=== PATIENT | male | born 1960 | race Caucasian/White ===

== ENCOUNTER 2024-06-09 11:48 | Emergency (ER) | payer BC, OTHER ==
[~2024-06-09] VITALS: Ht 180.3 cm; Wt 75.0 kg
--- NOTE | 2024-06-09 11:53 | ED.PDOC ---
HPI Comments 64-year-old male with PMHx Arthritis brought in by EMS presents with a chief complaint of palpitations and anxiety. Patient states that he is feeling palpitations to his left chest wall, no active pain at this time, describes as pressure sensation. Patient mentions that he felt palpitations and drove to [facility] to check his BP and patient states that after checking it 3 times the machine told him "seek medical attention" and he drove to the nearest fire station. Patient was hypertensive on arrival at 176/99, no history of HTN. Patient is anxious about his symptoms. No other symptoms or modifying factors present at this time. Time Seen by MD: 11:43 Reviewed Notes: Medications, Allergies Allergies: Coded Allergies: NO KNOWN ALLERGIES (Unverified , 06/09/24) Information Source: Patient, Emergency Med Personnel Mode of Arrival: EMS Severity: Moderate Timing: Minutes Duration: Since onset Prehospital treatment: None Location: Chest (L) Radiation: No Radiation Quality: Pressure Onset: At Rest Cardiac Risk Factors: None PE Risk Factors: None History of: None Past Medical History PAST MEDICAL HISTORY: Denies Surgical History: Denies all surgeries Family History Family History: Reviewed,noncontributory to illness Social History Smoker: Non-Smoker Alcohol: Rarely Drugs: Denies Drug Use Lives In: Home Constitutional: denies: chills, diaphoresis, fatigue, fever, malaise, sweats, weakness, others EENTM: denies: blurred vision, double vision, ear bleeding, ear discharge, ear drainage, ear pain, ear ringing, eye pain, eye redness, hearing loss, mouth pain, mouth swelling, nasal discharge, nose bleeding, nose congestion, nose pain, photophobia, tearing, throat pain, throat swelling, voice changes, others Respiratory: denies: cough, hemoptysis, orthopnea, SOB at rest, shortness of breath, SOB with excertion, stridor, wheezing, others Cardiovascular: reports: palpitations; denies: chest pain, dizzy spells, diaphoresis, Dyspnea on exertion, edema, irregular heart beat, left arm pain, lightheadedness, PND, syncope, others Gastrointestinal: denies: abdomen distended, abdominal pain, blood streaked bowels, constipated, diarrhea, dysphagia, difficulty swallowing, hematemesis, melena, nausea, poor appetite, poor fluid intake, rectal bleeding, rectal pain, vomiting, others Genitourinary: denies: burning, dysuria, flank pain, frequency, hematuria, incontinence, penile discharge, penile sore, pain, testicle pain, testicle swelling, urgency, others Neurological: denies: dizziness, fainting, headache, left sided numbness, left sided weakness, numbness, paresthesia, pre-existing deficit, right sided numbness, right sided weakness, seizure, speech problems, tingling, tremors, weakness, others Musculoskeletal: denies: back pain, gout, joint pain, joint swelling, muscle pain, muscle stiffness, neck pain, others Integumetry: denies: bruises, change in color, change in hair/nails, dryness, laceration, lesions, lumps, rash, wounds, others Allergic/Immunocompromised: denies: Difficulty Healing, Frequent Infections, Hives, Itching, others Hematologic/Lymphatic: denies: anemia, blood clots, easy bleeding, easy bruising, swollen glands, others Endocrine: denies: excessive hunger, excessive sweating, excessive thirst, excessive urination, flushing, intolerance to cold, intolerance to heat, unexplained weight gain, unexplained weight loss, others Psychiatric: reports: anxiety; denies: bipolar disorder, depression, hopeless, panic disorder, schizophrenia, sleepless, suicidal, others All Other Systems: Reviewed and Negative Physical Exam General Appearance: Moderate Distress, Normal HEENT: Normal ENT Inspection, Pharynx Normal, TMs Normal Neck: Full Range of Motion, Non-Tender, Normal, Normal Inspection Respiratory: Chest Non-Tender, Lungs Clear, No Accessory Muscle Use, No Respiratory Distress, Normal Breath Sounds Cardiovascular: No Edema, No JVD, No Murmur, No Gallop, Normal Peripheral Pulses, Tachycardia Breast Exam: Deferred Gastrointestinal: No Organomegaly, Non Tender, No Pulsatile Mass, Normal Bowel Sounds, Soft Genitalia: Deferred Pelvic: Deferred Rectal: Deferred Extremities: No calf tenderness, Normal capillary refill, Normal inspection, No rmal range of motion, Non-tender, No pedal edema Musculoskeletal : Apperance: Normal Neurologic: Alert, mica spreader II-XII nml as Tested, No Motor Deficits, Normal Affect, Normal Mood, No Sensory Deficits Cerebellar Function: Normal Reflexes: Normal Skin: Dry, Normal Color, Warm Peripheral Pulses: 3+ Radial (R), 3+ Radial (L) Lymphatic: No Adenopathy Was a procedure done? Was a procedure done?: No CP Differential Dx Differential Diagnosis: A-fib, A-Flutter, Angina, Anxiety / Panic Attack, Atrial Dysrhythmia, Electrolyte Disorder X-Ray, Labs, Meds, VS Vital Signs Date Time Temp Pulse Resp B/P (MAP) Pulse Ox O2 Delivery O2 Flow Rate FiO2 06/09/24 13:50 98.0 100 17 153/99 (117) 96 98.0 06/09/24 12:59 98.1 114 18 166/110 (128) 97 98.1 06/09/24 12:59 114 18 97 Room Air 06/09/24 12:00 97.7 118 18 160/94 (116) 97 06/09/24 11:53 124 Lab Test 06/09/24 13:11 06/09/24 12:03 Range/Units White Blood Count 10.5 4.4-10.8 10^3/uL Red Blood Count 5.57 4.5-5.90 10^6/uL Hemoglobin 16.9 13.5-17.5 g/dL Hematocrit 50.0 41.0-53.0 % Mean Corpuscular Volume 89.6 80.0-100.0 fL Mean Corpuscular Hemoglobin 30.2 28.0-32.0 pg Mean Corpuscular Hemoglobin Concent 33.8 32.0-36.0 g/dL Red Cell Distribution Width 14.1 11.8-14.3 % Platelet Count 251 140-450 10^3/uL Mean Platelet Volume 8.5 6.9-10.8 fL Neutrophils (%) (Auto) 81.9 H 37.0-80.0 % Lymphocytes (%) (Auto) 11.5 10.0-50.0 % Monocytes (%) (Auto) 6.1 0.0-12.0 % Eosinophils (%) (Auto) 0.2 0.0-7.0 % Basophils (%) (Auto) 0.3 0.0-2.0 % Neutrophils # (Auto) 8.6 1.6-8.6 10 ^3/uL Lymphocytes # (Auto) 1.2 0.4-5.4 10 ^3/uL Monocytes # (Auto) 0.6 0-1.3 10 ^3/uL Eosinophils # (Auto) 0 0-0.8 10 ^3/uL Basophils # (Auto) 0 0-0.2 10 ^3/uL Nucleated Red Blood Cells 0.1 % Sodium Level 139 136-145 mmol/L Potassium Level 5.0 3.5-5.1 mmol/L Chloride Level 104 98-107 mmol/L Carbon Dioxide Level 27 20-31 mmol/L Anion Gap 8 5-15 Blood Urea Nitrogen 18 9-23 mg/dL Creatinine 0.89 0.700-1.30 mg/dL Glomerular Filtration Rate Calc 96 >90 mL/min BUN/Creatinine Ratio 20.2 H 10.0-20.0 Serum Glucose 122 H 74-106 mg/dL Calcium Level 10.4 8.7-10.4 mg/dL Troponin I High Sensitivity 6 </=54 ng/L Urine Color Light-yellow Yellow Urine Clarity Clear Clear Urine pH 5.5 5.0-9.0 Urine Specific [place] 1.022 1.001-1.035 Urine Protein Negative Negative Urine Ketones Trace Negative Urine Blood Negative Negative /uL Urine Nitrite Negative Negative Urine Bilirubin Negative Negative Urine Urobilinogen Normal Negative mg/dL Urine Leukocyte Esterase Negative Negative /uL Urine RBC 1 0 - 3 /hpf Urine Microscopic WBC < 1 0-3 /HPF Urine Squamous Epithelial Cells None seen <5 /hpf Urine Bacteria None seen None Seen /hpf Urine Mucus Few None Seen Urine Glucose 4+ H Normal mg/dL Current Medications Medications (Trade) Dose Ordered Sig/Lexi Route Start Time Stop Time Status Last Admin Lorazepam (Ativan Inj) 1 mg ONCE ONCE IV 06/09/24 12:00 06/09/24 12:01 DC 06/09/24 13:11 Aspirin 325 mg ONCE ONCE PO 06/09/24 12:00 06/09/24 12:01 DC 06/09/24 13:11 Patient alert. Complaining of palpitations. Blood pressure elevated. Answering questions. Possible anxiety. Risk factors for coronary artery disease. Echocardiogram. Cardiology consultation. Stress test. Was given aspirin. Was given Ativan. Reviewed his history. Explained to the patient. Continue monitoring. EKG reviewed does not show any acute changes. Blood pressure normalized. Possible anxiety. Spoke with [facility] physician. Agreed patient can be followed up with his primary care physician. Which consultation note to be departed will be done by [facility] physician. Patient comfortable. Reviewed his labs and history. He is comfortable. He insists on going home. He will be followed up at [facility] primary care physician. Was told to come back if there is any problem. Time of 1ST Reevaluation: 12:13 Reevaluation 1ST: Improved Time of 2ND Reevaluation: 16:42 Reevaluation 2ND: Improved Patient Education/Counseling: Diagnosis, Treatment, Prognosis Family Education/Counseling: Diagnosis, Treatment, Prognosis Departure 1 Departure Time of Disposition: 11:59 Impression: Primary Impression: Chest pain of unknown etiology Additional Impressions: Hypertension Qualified Codes: I10 - Essential (primary) hypertension Uncontrolled diabetes mellitus Qualified Codes: E13.65 - Other specified diabetes mellitus with hyperglycemia Disposition: ADMITTED INPATIENT Admit to: Med Surg Condition: Guarded Critical Care Note Critical Care Time?: Yes (45 min-critical care time only) Critical care comment: Continues to have chest pain. Stability Stability form required: No Heart Score Heart Score: Heart Score Response (Comments) Value History Slightly Suspicious 0 EKG Normal 0 Age 45-64 1 Risk Factors >3 or Hx ASHD 2 Troponin Normal limit 0 Total 3 I personally scribed for JEANETTE RIVAS MD ([email or web address]) on 06/09/24 at 11:53. Electronically submitted by Josue Slade ([email or web address]). JEANETTE RIVAS MD Jun 09, 2024 11:53
--- NOTE | 2024-06-09 12:27 | DVH ---
EXAM: XY CHEST PORTABLE Indication: DYSPNEA Technique: Single frontal view of the chest was obtained Comparison: None FINDINGS: Lines and Tubes: None Lungs: No focal consolidation. Pleura: No effusion. No pneumothorax. Cardiomediastinal contours: Unremarkable Bones: No acute osseous abnormality. IMPRESSION: No acute cardiopulmonary disease.
--- NOTE | 2024-06-09 12:32 | ECG ---
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
[2024-06-09 12:36] LABS: Urine Bacteria None Seen /hpf (None Seen)
[2024-06-09 12:58] LABS: Urine Blood Negative /uL (Negative); Urine Clarity Clear (Clear); Urine Color Light-Yellow (Yellow); Urine Mucus FEW (None Seen); Urine Protein, UAD Negative (Negative); Urine Specific Gravity 1.022 (1.001-1.035); Urine Squamous Epithelial Cell None Seen /hpf (<5); Urine Urobilinogen Normal (Negative); Urine pH 5.5 (5.0-9.0)
[2024-06-09] MEDS: ASPirin 325 MG TAB PO ONE (13:11)
[2024-06-09] MEDS: LORazepam 2MG/ML-1ML VIAL IV ONE ×2 (13:11→17:15)
[2024-06-09 13:13] LABS: Urine WBC < 1 /HPF (0-3)
[2024-06-09 13:54] LABS: Basophils # (auto) 0 10 ^3/uL (0-0.2); Basophils % (auto) 0.3 % (0.0-2.0); Eosinophils # (auto) 0 10 ^3/uL (0-0.8); Eosinophils % (auto) 0.2 % (0.0-7.0); Hemoglobin 16.9 g/dL (13.5-17.5); Lymphocytes # (auto) 1.2 10 ^3/uL (0.4-5.4); Lymphocytes % (auto) 11.5 % (10.0-50.0); Mean Corpuscular Hemoglobin 30.2 pg (28.0-32.0); Mean Corpuscular Hgb Conc. 33.8 g/dL (32.0-36.0); Mean Corpuscular Volume 89.6 fL (80.0-100.0); Monocytes # (auto) 0.6 10 ^3/uL (0-1.3); Monocytes % (auto) 6.1 % (0.0-12.0); Neutrophils # (auto) 8.6 10 ^3/uL (1.6-8.6); Neutrophils % (auto) 81.9 % (37.0-80.0); Nucleated Red Blood Cells % 0.1 %; Platelet Count (auto) 251 10^3/uL (140-450); Red Blood Cells 5.57 10^6/uL (4.5-5.90); Red Cell Distribution Width 14.1 % (11.8-14.3); White Blood Cell 10.5 10^3/uL (4.4-10.8)
[2024-06-09 13:59] LABS: Chloride 104 mmol/L (98-107); Sodium 139 mmol/L (136-145)
[2024-06-09 14:00] LABS: Anion Gap 8 (5-15); Carbon Dioxide 27 mmol/L (20-31)
[2024-06-09 14:03] LABS: Calcium 10.4 mg/dL (8.7-10.4)
[2024-06-09 14:05] LABS: BUN/Creatinine Ratio 20.2 (10.0-20.0); Blood Urea Nitrogen 18 mg/dL (9-23)
[2024-06-09 14:06] LABS: Glucose 122 mg/dL (74-106)
--- NOTE | 2024-06-09 16:53 | DVHDS2 ---
New Physician D'charge PN Admitting Diagnosis Admitting Diagnosis palpitations Discharge Diagnosis PVCs Operations or Procedures none Reason(s) For Hospitalization Surgery Hospital Course 64 M who comes to ER for palpitations on and off. When he arrived his BP was elevated with SBP in the 160s. He appeared anxious and thus was given IV ativan along with a one time dose of ASA. His CBC was noted to be unremarkable and chemistry panel was nml with preserved renal function. His troponin enzyme was negative and he complained of no chest pain. Otherwise patient is A/O x4 and EKG revealed PVCs but no arrhythmia. He will be discharged home with outpt cardiology follow up. Discussed with ER provider and all parties in agreement with plan. [facility] to arrange for all outpt follow up. Treatment Plan Discharge Condition of Discharge Good Disposition Home Discharge Instructions Diet: Cardiac 2g Na,low cholest Activity: No Restrictions, As Tolerated Medications: see med sheet Follow Up Care Discharge Statement: "Patient was advised to return to the ER or call 911 if any headaches, dizziness, shortness of breath, chest pain, abdominal pain, bleeding, fevers, or worsening of medical condition. Patient was counseled about treatment plan, medications, possible side effects, patientverbalized understanding. All questions were answered to the best of my ability. This discharge took greater then 30 minutes in planning, reviewing documentation, counseling the patient, and discussing with other team members." LIA BRYAN MD Jun 09, 2024 16:53
[2024-06-09] MEDS: METOPROLOL TARTRATE 25 MG TAB PO ONE (17:05)
[2024-06-09] MEDS: amLODIPine BESYLATE 5 MG TAB PO ONE (17:06)
[2024-06-09 17:20] VITALS: PULSE 96; RESP 18; O2SAT 97
[2024-06-09 18:08] VITALS: BP 153/74; PULSE 157; RESP 17; TEMP 98.7; O2SAT 100
== END 2024-06-09 18:09 | disposition home or self-care (01) ==
LOC: EDBD 11:48 → ER 11:48
DX: I10 Essential (primary) hypertension (principal); E11.65 Type 2 diabetes mellitus with hyperglycemia; R07.9 Chest pain, unspecified
CPT/HCPCS: 36415; 71045; 80048; 81001; 84484; 85025; 93005; 96374; 99285; J2060